=== PATIENT | male | born 1955 | race Hispanic/Latino ===

== ENCOUNTER 2022-08-19 12:58 | Inpatient (IN) | payer BC, MEDICARE, OTHER ==
[~2022-08-19] VITALS: Ht 170.2 cm; Wt 77.1 kg
[~2022-08-19 12:58] MED LIST: AMLODIPINE BESY10 MG PO; ASPIRIN325 MG PO; FISH OIL PO; LISINOPRIL10 MG PO; METOPROLOL SUC100 MG PO; PLAVIX75 MG PO; SIMVASTATIN40 MG PO
[2022-08-19] MEDS ORDERED: SODIUM CHLORIDE 0.9% 1000ML 1,000 ML IV STA (14:50)
[2022-08-19] MEDS ORDERED: KETOROLAC TROMETHAMINE 30 MG/ML VIAL IV STA (14:50)
[2022-08-19] MEDS ORDERED: ONDANSETRON HCL INJ 2MG/ML 2ML 2 MG/ML VIAL IV STA (14:50)
[2022-08-19 15:05] LABS: BASOPHILS # (AUTO) 0.1 (0.0-0.1); BASOPHILS % 0.3 % (0.0-1.0); EOSINOPHILS % 0.2 % (0.0-6.0); HEMOGLOBIN 13.7 g/dL (14.0-18.0); LYMPHOCYTES # (AUTO) 1.8 (1.0-3.2); LYMPHOCYTES % 10.9 % (18.0-39.1); MEAN CORPUSCULAR HEMOGLOBIN 30.3 pg (28-32); MEAN CORPUSCULAR HGB CONC 31.9 g/dL (31-35); MEAN CORPUSCULAR VOLUME 95.1 fL (81-99); MONOCYTES # (AUTO) 1.5 (0.2-0.8); MONOCYTES % 9.3 % (4.4-11.3); NEUTROPHILS # (AUTO) 12.9 (2.1-6.9); NEUTROPHILS % 78.8 % (38.7-80.0); PLATELET COUNT 297 x10e3/uL (140-360); RED BLOOD COUNT 4.52 x10e6/uL (4.3-5.7); RED CELL DISTRIBUTION WIDTH 13.2 % (11.7-14.4)
[2022-08-19 15:19] LABS: ALBUMIN 4.4 g/dL (3.5-5.0); ALBUMIN/GLOBULIN RATIO 1.2 (0.8-2.0); ANION GAP 20.1 mmol/L (8-16); CALCIUM 9.2 mg/dL (8.4-10.2); MAGNESIUM 2.1 MG/DL (1.3-2.1); POTASSIUM 4.1 mmol/L (3.5-5.1)
[2022-08-19 15:22] LABS: CLARITY,URINE SL CLOUDY (CLEAR); COLOR,URINE YELLOW (YELLOW); KETONES,URINE 1+ (NEGATIVE); LEUKOCYTE ESTERASE ,URINE NEGATIVE (NEGATIVE); NITRITE,URINE NEGATIVE (NEGATIVE); PROTEIN,URINE DIPSTICK NEGATIVE (NEGATIVE); URINE UROBILINOGEN 0.2 mg/dL (0.2 - 1)
[2022-08-19 15:26] LABS: CREATINE KINASE MB 1.3 ng/mL (0-5.0)
[2022-08-19 15:35] LABS: RBC,URINE 0-5 /HPF (0-5)
[2022-08-19] MEDS ORDERED: ONDANSETRON HCL INJ 2MG/ML 2ML 2 MG/ML VIAL IV PRN (16:30)
[2022-08-19] MEDS: SODIUM CHLORIDE 0.9% 1000ML 1,000 ML IV SCH (17:00)
[2022-08-19 20:00] VITALS: BP 138/63
[2022-08-19 21:00] VITALS: BP 138/63
[2022-08-20] VITALS (8 sets, daily range): BP systolic 136–161; BP diastolic 58–74
[2022-08-20] MEDS: SODIUM CHLORIDE 0.9% 1000ML 1,000 ML IV SCH ×4 (00:16→20:42)
[2022-08-20 05:54] LABS: BASOPHILS % 0.3 % (0.0-1.0); EOSINOPHILS # (AUTO) 0.1 (0.0-0.4); EOSINOPHILS % 1.1 % (0.0-6.0); HEMATOCRIT 37.1 % (38.2-49.6); HEMOGLOBIN 11.4 g/dL (14.0-18.0); LYMPHOCYTES # (AUTO) 1.9 (1.0-3.2); LYMPHOCYTES % 20.6 % (18.0-39.1); MEAN CORPUSCULAR HEMOGLOBIN 29.5 pg (28-32); MEAN CORPUSCULAR HGB CONC 30.7 g/dL (31-35); MEAN CORPUSCULAR VOLUME 96.1 fL (81-99); MONOCYTES # (AUTO) 0.9 (0.2-0.8); MONOCYTES % 10.4 % (4.4-11.3); NEUTROPHILS % 67.3 % (38.7-80.0); PLATELET COUNT 231 x10e3/uL (140-360); RED BLOOD COUNT 3.86 x10e6/uL (4.3-5.7); RED CELL DISTRIBUTION WIDTH 13.3 % (11.7-14.4)
[2022-08-20 06:23] LABS: ALBUMIN 3.4 g/dL (3.5-5.0); ALBUMIN/GLOBULIN RATIO 1.3 (0.8-2.0); ANION GAP 15.2 mmol/L (8-16); CALCIUM 8.2 mg/dL (8.4-10.2); CREATININE, SERUM 1.63 mg/dL (0.72-1.25); POTASSIUM 4.2 mmol/L (3.5-5.1)
[2022-08-20] MEDS: Morphine 4mg INJECTION 4 MG/ML INJ IV PRN ×3 (06:44→20:42)
[2022-08-20] MEDS ORDERED: ACETAMINOPHEN/CODEINE 300MG - 30MG TAB PO PRN (06:45)
[2022-08-20] MEDS: LISINOPRIL 10 MG TAB PO SCH ×2 (08:38→15:50)
[2022-08-20] MEDS: AMLODIPINE BESYLATE 10 MG TAB PO SCH (08:38)
[2022-08-20] MEDS: METOPROLOL SUCCINATE 50 MG TAB XL PO SCH (08:39)
[2022-08-20] MEDS: SIMVASTATIN 40 MG TAB PO SCH (20:42)
[2022-08-21] VITALS: BP 150/63
[2022-08-21] MEDS: Morphine 4mg INJECTION 4 MG/ML INJ IV PRN ×2 (02:19→14:26)
[2022-08-21] MEDS: SODIUM CHLORIDE 0.9% 1000ML 1,000 ML IV SCH ×4 (02:19→20:35)
[2022-08-21 05:50] LABS: BASOPHILS % 0.2 % (0.0-1.0); EOSINOPHILS # (AUTO) 0.1 (0.0-0.4); EOSINOPHILS % 1.7 % (0.0-6.0); HEMOGLOBIN 10.9 g/dL (14.0-18.0); LYMPHOCYTES # (AUTO) 1.4 (1.0-3.2); LYMPHOCYTES % 16.8 % (18.0-39.1); MEAN CORPUSCULAR HEMOGLOBIN 30.1 pg (28-32); MEAN CORPUSCULAR HGB CONC 31.1 g/dL (31-35); MEAN CORPUSCULAR VOLUME 96.7 fL (81-99); MONOCYTES % 11.7 % (4.4-11.3); NEUTROPHILS # (AUTO) 5.6 (2.1-6.9); NEUTROPHILS % 69.2 % (38.7-80.0); PLATELET COUNT 216 x10e3/uL (140-360); RED BLOOD COUNT 3.62 x10e6/uL (4.3-5.7)
[2022-08-21 06:25] LABS: ANION GAP 12.2 mmol/L (8-16); CREATININE, SERUM 1.62 mg/dL (0.72-1.25); POTASSIUM 4.2 mmol/L (3.5-5.1)
[2022-08-21 07:52] VITALS: BP 144/59
[2022-08-21 07:57] VITALS: BP 144/59
[2022-08-21] MEDS: LISINOPRIL 10 MG TAB PO SCH ×2 (08:44→16:08)
[2022-08-21] MEDS: AMLODIPINE BESYLATE 10 MG TAB PO SCH (08:44)
[2022-08-21] MEDS: METOPROLOL SUCCINATE 50 MG TAB XL PO SCH (08:45)
[2022-08-21 11:52] VITALS: BP 154/68
[2022-08-21 15:23] VITALS: BP 143/59
[2022-08-21 20:00] VITALS: BP_SYST 122; BP_SYST 143; BP_SYST 161; BP_DIAS 56; BP_DIAS 59; BP_DIAS 63
[2022-08-21] MEDS: SIMVASTATIN 40 MG TAB PO SCH (20:34)
[2022-08-21] MEDS ORDERED: BISACODYL 5 MG TAB EC PO PRN (21:30)
[2022-08-22] MEDS: SODIUM CHLORIDE 0.9% 1000ML 1,000 ML IV SCH ×3 (02:58→18:51)
[2022-08-22] MEDS: Morphine 4mg INJECTION 4 MG/ML INJ IV PRN ×3 (02:58→21:43)
[2022-08-22] MEDS ORDERED: LACTULOSE SYRUP 20 GM/30 ML UDC PO PRN (05:00)
[2022-08-22 06:01] LABS: BASOPHILS % 0.2 % (0.0-1.0); EOSINOPHILS # (AUTO) 0.1 (0.0-0.4); EOSINOPHILS % 1.5 % (0.0-6.0); HEMATOCRIT 31.8 % (38.2-49.6); HEMOGLOBIN 10.6 g/dL (14.0-18.0); LYMPHOCYTES # (AUTO) 1.3 (1.0-3.2); LYMPHOCYTES % 15.3 % (18.0-39.1); MEAN CORPUSCULAR HEMOGLOBIN 30.2 pg (28-32); MEAN CORPUSCULAR HGB CONC 33.3 g/dL (31-35); MEAN CORPUSCULAR VOLUME 90.6 fL (81-99); MONOCYTES # (AUTO) 0.8 (0.2-0.8); MONOCYTES % 9.5 % (4.4-11.3); NEUTROPHILS % 73.1 % (38.7-80.0); PLATELET COUNT 225 x10e3/uL (140-360); RED BLOOD COUNT 3.51 x10e6/uL (4.3-5.7)
[2022-08-22 06:42] LABS: ANION GAP 14.8 mmol/L (8-16); CALCIUM 8.1 mg/dL (8.4-10.2); CREATININE, SERUM 1.49 mg/dL (0.72-1.25); POTASSIUM 3.8 mmol/L (3.5-5.1)
[2022-08-22] MEDS ORDERED: IOPAMIDOL 300MG/ML 50ML INFUS..BTL IV ONE (06:48)
[2022-08-22 08:18] VITALS: BP 143/59
[2022-08-22] MEDS ORDERED: PHENAZOPYRIDINE HCL 100 MG TAB PO PRN (09:00)
[2022-08-22 09:11] VITALS: BP 159/70
[2022-08-22] MEDS: OXYBUTYNIN CHLORIDE 5 MG TAB PO SCH ×2 (09:57→17:36)
[2022-08-22] MEDS: AMLODIPINE BESYLATE 10 MG TAB PO SCH (09:58)
[2022-08-22] MEDS: LISINOPRIL 10 MG TAB PO SCH ×2 (09:58→17:37)
[2022-08-22] MEDS: METOPROLOL SUCCINATE 50 MG TAB XL PO SCH (09:59)
[2022-08-22 11:41] VITALS: BP 139/58
[2022-08-22] MEDS ORDERED: FENTANYL CITRATE/PF 100MCG/2 ML INJ ONE (13:56)
[2022-08-22 15:16] VITALS: BP 154/64
[2022-08-22 20:00] VITALS: BP_SYST 154; BP_SYST 179; BP_DIAS 64; BP_DIAS 79
[2022-08-22] MEDS: SIMVASTATIN 40 MG TAB PO SCH (20:36)
[2022-08-23] VITALS: BP 170/75
[2022-08-23] MEDS: SODIUM CHLORIDE 0.9% 1000ML 1,000 ML IV SCH ×2 (02:32→09:04)
[2022-08-23 04:00] VITALS: BP 134/69
[2022-08-23 06:09] LABS: BASOPHILS % 0.2 % (0.0-1.0); EOSINOPHILS # (AUTO) 0.1 (0.0-0.4); HEMATOCRIT 32.8 % (38.2-49.6); HEMOGLOBIN 10.3 g/dL (14.0-18.0); LYMPHOCYTES # (AUTO) 0.9 (1.0-3.2); LYMPHOCYTES % 11.4 % (18.0-39.1); MEAN CORPUSCULAR HEMOGLOBIN 30.1 pg (28-32); MEAN CORPUSCULAR HGB CONC 31.4 g/dL (31-35); MEAN CORPUSCULAR VOLUME 95.9 fL (81-99); MONOCYTES # (AUTO) 0.8 (0.2-0.8); MONOCYTES % 9.2 % (4.4-11.3); NEUTROPHILS # (AUTO) 6.4 (2.1-6.9); NEUTROPHILS % 77.7 % (38.7-80.0); PLATELET COUNT 241 x10e3/uL (140-360); RED BLOOD COUNT 3.42 x10e6/uL (4.3-5.7)
[2022-08-23 06:29] LABS: CALCIUM 7.7 mg/dL (8.4-10.2); CREATININE, SERUM 1.38 mg/dL (0.72-1.25)
[2022-08-23 08:28] VITALS: BP 173/66
[2022-08-23 08:29] VITALS: BP 173/66
[2022-08-23] MEDS: OXYBUTYNIN CHLORIDE 5 MG TAB PO SCH (09:04)
[2022-08-23] MEDS: AMLODIPINE BESYLATE 10 MG TAB PO SCH (09:05)
[2022-08-23] MEDS: LISINOPRIL 10 MG TAB PO SCH (09:05)
[2022-08-23] MEDS: METOPROLOL SUCCINATE 50 MG TAB XL PO SCH (09:05)
[2022-08-23] MEDS ORDERED: FLOMAX0.4 MG PO (11:50)
[2022-08-23] MEDS ORDERED: DITROPAN XL5 MG PO (11:51)
[2022-08-23] MEDS ORDERED: tylenol #3 PO (11:52)
[2022-08-23 12:04] VITALS: BP 164/69
[2022-08-23 12:50] VITALS: BP 151/64
== END 2022-08-23 13:10 | disposition home or self-care (01) | DRG 661 ==
LOC: ER 13:38 → ERHOLD 16:47 → MED/SURG3 20:13
PROVIDERS: ADMIT Family Medicine; ATTEND Family Medicine
PROC: BT141ZZ Fluoroscopy of Kidneys, Ureters and Bladder using Low Osmolar Contrast (ICD-10-PCS; 2022-08-22)
PROC: 0TC68ZZ Extirpation of Matter from Right Ureter, Via Natural or Artificial Opening Endoscopic (ICD-10-PCS; principal; 2022-08-22 07:17)
PROC: 0T768DZ Dilation of Right Ureter with Intraluminal Device, Via Natural or Artificial Opening Endoscopic (ICD-10-PCS; 2022-08-22 07:17)
DX: N13.6 Pyonephrosis (principal); E83.52 Hypercalcemia; E78.00 Pure hypercholesterolemia, unspecified; I25.10 Atherosclerotic heart disease of native coronary artery without angina pectoris; Z95.5 Presence of coronary angioplasty implant and graft; I73.9 Peripheral vascular disease, unspecified; Z20.822 Contact with and (suspected) exposure to COVID-19; N28.1 Cyst of kidney, acquired; D64.9 Anemia, unspecified; R31.29 Other microscopic hematuria; N40.0 Benign prostatic hyperplasia without lower urinary tract symptoms; I12.9 Hypertensive chronic kidney disease with stage 1 through stage 4 chronic kidney disease, or unspecified chronic kidney disease; N18.30 Chronic kidney disease, stage 3 unspecified; N17.9 Acute kidney failure, unspecified
CPT/HCPCS: 0223U; 36415; 74018; 74176; 74420; 76705; 80048; 80053; 81001; 82550; 82553; 83690; 83735; 83970; 84484; 84550; 85025; 87086; 88300; 99284; C1758; C1766; C1769; C2617; J0696; J1885; J2270; J2405; J3010; J7030

== ENCOUNTER → 2022-12-09 | Day surgery (SDC) | payer BC, MEDICARE, OTHER ==
[2022-12-08 15:26] LABS: BASOPHILS % 0.2 % (0.0-1.0); EOSINOPHILS # (AUTO) 0.3 (0.0-0.4); EOSINOPHILS % 2.5 % (0.0-6.0); HEMATOCRIT 40.1 % (38.2-49.6); HEMOGLOBIN 13.1 g/dL (14.0-18.0); LYMPHOCYTES # (AUTO) 2.8 (1.0-3.2); LYMPHOCYTES % 22.3 % (18.0-39.1); MEAN CORPUSCULAR HEMOGLOBIN 30.7 pg (28-32); MEAN CORPUSCULAR HGB CONC 32.7 g/dL (31-35); MEAN CORPUSCULAR VOLUME 93.9 fL (81-99); MONOCYTES # (AUTO) 0.9 (0.2-0.8); NEUTROPHILS # (AUTO) 8.5 (2.1-6.9); NEUTROPHILS % 67.7 % (38.7-80.0); PLATELET COUNT 288 x10e3/uL (140-360); RED BLOOD COUNT 4.27 x10e6/uL (4.3-5.7); RED CELL DISTRIBUTION WIDTH 12.7 % (11.7-14.4)
[2022-12-08 15:44] LABS: ANION GAP 16.1 mmol/L (8-16); CALCIUM 9.3 mg/dL (8.4-10.2); CREATININE, SERUM 0.99 mg/dL (0.72-1.25)
[2022-12-08 15:52] LABS: POTASSIUM 5.1 mmol/L (3.5-5.1)
[~2022-12-09] MED LIST changes: +CEFTRIAXONE 1 GM VIAL ONE; +DEXAMETHASONE SOD PHOS INJ 4 MG/ML SDV ONE; +DITROPAN XL5 MG PO; +EPHEDRINE SULFATE INJ 50 MG/ML VIAL ONE; +FENTANYL CITRATE/PF 100MCG/2 ML INJ ONE; +FLOMAX0.4 MG PO; +GENTAMICIN 80MG/NS 100 ML 100 ML IV ONE; +IOPAMIDOL 610MG/1ML 300 MG/ML VIAL IV ONE; +LACTATED RINGER'S 1,000 ML ONE; +LIDOCAINE HCL 2% LOCAL INJ 5 ML SDV VIAL INJ ONE; +ONDANSETRON HCL INJ 2MG/ML 2ML 2 MG/ML VIAL ONE; +POVIDONE IODINE 0.05% 0.05 % ML PO ONE; +PROPOFOL IV EMULSION 10 MG/ML 20 ML VIAL ONE; +SEVOFLURANE INHAL SOLN 250 ML PEN BTL ONE; +tylenol #3 PO
[2022-12-09 10:45] VITALS: BP 126/59
== END | disposition home or self-care (01) ==
LOC: OR 07:59
PROVIDERS: ATTEND Urology
DX: N20.1 Calculus of ureter (principal); Z46.6 Encounter for fitting and adjustment of urinary device; N13.30 Unspecified hydronephrosis; N28.89 Other specified disorders of kidney and ureter; N40.0 Benign prostatic hyperplasia without lower urinary tract symptoms; N13.8 Other obstructive and reflux uropathy; N32.89 Other specified disorders of bladder; Z01.810 Encounter for preprocedural cardiovascular examination; Z01.812 Encounter for preprocedural laboratory examination; Z01.818 Encounter for other preprocedural examination; Z79.02 Long term (current) use of antithrombotics/antiplatelets; Z79.82 Long term (current) use of aspirin; Z79.899 Other long term (current) drug therapy
CPT/HCPCS: 36415; 52351; 71046; 74018; 74420; 80048; 84550; 85025; 93005; C1769; J0696; J1100; J1580; J2001; J2405; J2704; J3010; J7121; Q9967

== ENCOUNTER 2023-02-25 08:29 | Inpatient (IN) | payer BC, MEDICARE ==
[~2023-02-25] VITALS: Ht 170.2 cm; Wt 78.5 kg
[~2023-02-25 08:29] MED LIST changes: -CEFTRIAXONE 1 GM VIAL ONE; -DEXAMETHASONE SOD PHOS INJ 4 MG/ML SDV ONE; -EPHEDRINE SULFATE INJ 50 MG/ML VIAL ONE; -FENTANYL CITRATE/PF 100MCG/2 ML INJ ONE; -GENTAMICIN 80MG/NS 100 ML 100 ML IV ONE; -IOPAMIDOL 610MG/1ML 300 MG/ML VIAL IV ONE; -LACTATED RINGER'S 1,000 ML ONE; -LIDOCAINE HCL 2% LOCAL INJ 5 ML SDV VIAL INJ ONE; -ONDANSETRON HCL INJ 2MG/ML 2ML 2 MG/ML VIAL ONE; -POVIDONE IODINE 0.05% 0.05 % ML PO ONE; -PROPOFOL IV EMULSION 10 MG/ML 20 ML VIAL ONE; -SEVOFLURANE INHAL SOLN 250 ML PEN BTL ONE
[2023-02-25 09:22] LABS: BASOPHILS # (AUTO) 0.1 (0.0-0.1); BASOPHILS % 0.4 % (0.0-1.0); EOSINOPHILS # (AUTO) 1.3 (0.0-0.4); HEMOGLOBIN 13.5 g/dL (14.0-18.0); LYMPHOCYTES # (AUTO) 2.2 (1.0-3.2); LYMPHOCYTES % 12.9 % (18.0-39.1); MEAN CORPUSCULAR HEMOGLOBIN 31.5 pg (28-32); MEAN CORPUSCULAR HGB CONC 35.5 g/dL (31-35); MEAN CORPUSCULAR VOLUME 88.6 fL (81-99); MONOCYTES # (AUTO) 1.8 (0.2-0.8); MONOCYTES % 10.7 % (4.4-11.3); NEUTROPHILS # (AUTO) 11.2 (2.1-6.9); NEUTROPHILS % 67.6 % (38.7-80.0); PLATELET COUNT 362 x10e3/uL (140-360); RED BLOOD COUNT 4.29 x10e6/uL (4.3-5.7); RED CELL DISTRIBUTION WIDTH 12.1 % (11.7-14.4)
[2023-02-25 09:34] LABS: INR 0.95; PROTHROMBIN TIME 13.2 seconds (11.9-14.5)
[2023-02-25 09:57] LABS: ALANINE AMINOTRANSFERASE 16 IU/L (0-55); ALBUMIN/GLOBULIN RATIO 1.1 (0.8-2.0); ALKALINE PHOSPHATASE 106 IU/L (40-150); ANION GAP 17.9 mmol/L (8-16); BLOOD UREA NITROGEN 16 mg/dL (7-26); BUN/CREATININE RATIO 17 (6-25); CALCIUM 9.2 mg/dL (8.4-10.2); CARBON DIOXIDE 17 mmol/L (22-29); CHLORIDE 100 mmol/L (98-107); CREATINE KINASE 54 IU/L (30-200); CREATININE, SERUM 0.94 mg/dL (0.72-1.25); GLUCOSE 100 mg/dL (74-118); POTASSIUM 3.9 mmol/L (3.5-5.1); SODIUM 131 mmol/L (136-145)
[2023-02-25 11:04] LABS: COLOR,URINE YELLOW (YELLOW)
[2023-02-25 11:05] LABS: CLARITY,URINE CLEAR (CLEAR); KETONES,URINE 1+ (NEGATIVE); LEUKOCYTE ESTERASE ,URINE NEGATIVE (NEGATIVE); NITRITE,URINE NEGATIVE (NEGATIVE); PROTEIN,URINE DIPSTICK NEGATIVE (NEGATIVE); URINE UROBILINOGEN 0.2 mg/dL (0.2 - 1)
[2023-02-25 11:24] LABS: BACTERIA,URINE FEW /HPF; EPITHELIAL CELLS,URINE FEW /LPF; RBC,URINE 0-5 /HPF (0-5); WBC,URINE (MAN) 0-5 /HPF (0-5)
[2023-02-25 11:25] LABS: URIC ACID CRYSTALS,URINE FEW (FEW)
[2023-02-25] MEDS ORDERED: SODIUM CHLORIDE 0.9% 1000ML 1,000 ML IV ONE (11:45)
[2023-02-25] MEDS ORDERED: NITROGLYCERIN 0.4 MG SUBL SL PRN (11:45)
[2023-02-25] MEDS ORDERED: ONDANSETRON HCL INJ 2MG/ML 2ML 2 MG/ML VIAL IV PRN (11:45)
[2023-02-25] MEDS ORDERED: IOPAMIDOL 370 MG/ML 100 ML INFUS..BTL INJ ONE (16:44)
[2023-02-25] MEDS: TAMSULOSIN HCL 0.4 MG CAP PO SCH ×2 (17:00→19:00)
[2023-02-25 18:20] VITALS: BP 153/71; PULSE 72; RESP 18; TEMP 98.2; O2SAT 100
[2023-02-25 18:50] VITALS: BP 153/71; PULSE 72; RESP 18; TEMP 98.2; O2SAT 100
[2023-02-25 19:25] VITALS: BP 141/67; PULSE 67; RESP 18; TEMP 100.1; O2SAT 100
[2023-02-25] MEDS: ACETAMINOPHEN 325 MG TAB PO PRN (20:43)
[2023-02-25 21:30] VITALS: BP 141/67; PULSE 67; RESP 18; TEMP 100.1; O2SAT 100
[2023-02-26] VITALS (8 sets, daily range): BP systolic 122–143; BP diastolic 55–62; PULSE 61–69; RESP 17–20; TEMP 98–100.2; O2SAT 63–100
[2023-02-26 04:56] LABS: BASOPHILS # (AUTO) 0.1 (0.0-0.1); BASOPHILS % 0.5 % (0.0-1.0); EOSINOPHILS # (AUTO) 1.1 (0.0-0.4); EOSINOPHILS % 9.1 % (0.0-6.0); HEMATOCRIT 35.5 % (38.2-49.6); HEMOGLOBIN 12.1 g/dL (14.0-18.0); LYMPHOCYTES % 8.6 % (18.0-39.1); MEAN CORPUSCULAR HEMOGLOBIN 31.3 pg (28-32); MEAN CORPUSCULAR HGB CONC 34.1 g/dL (31-35); MONOCYTES # (AUTO) 1.4 (0.2-0.8); MONOCYTES % 11.9 % (4.4-11.3); NEUTROPHILS % 69.3 % (38.7-80.0); PLATELET COUNT 310 x10e3/uL (140-360); RED BLOOD COUNT 3.86 x10e6/uL (4.3-5.7)
[2023-02-26 05:18] LABS: ALBUMIN 3.4 g/dL (3.5-5.0); ANION GAP 14.1 mmol/L (8-16); CALCIUM 8.8 mg/dL (8.4-10.2); CHOL/HDL RATIO 4.6 (3.9-4.7); CREATININE, SERUM 0.93 mg/dL (0.72-1.25); POTASSIUM 4.1 mmol/L (3.5-5.1)
[2023-02-26] MEDS: CLOPIDOGREL BISULFATE 75 MG TAB PO SCH (08:40)
[2023-02-26] MEDS: ASPIRIN 325 MG TAB PO SCH (08:40)
[2023-02-26] MEDS: AMLODIPINE BESYLATE 10 MG TAB PO SCH (08:40)
[2023-02-26] MEDS: LISINOPRIL 10 MG TAB PO SCH (08:41)
[2023-02-26] MEDS: METOPROLOL SUCCINATE 50 MG TAB XL PO SCH (08:41)
[2023-02-26] MEDS ORDERED: NON-FORMULARY MEDICATION (Metoprolol Succinate 100 MG) PO SCH (09:00)
[2023-02-26] MEDS ORDERED: ASPIRIN 81 MG ENTERIC COATED PO SCH (09:00)
[2023-02-26] MEDS ORDERED: ONDANSETRON HCL 4 MG ORAL DISINTEGRATING TAB PO PRN (09:00)
[2023-02-26] MEDS: SODIUM CHLORIDE 0.9% 1000ML 1,000 ML IV SCH (18:08)
[2023-02-26] MEDS: AZITHROMYCIN 250 MG TAB PO SCH (18:08)
[2023-02-26] MEDS: TAMSULOSIN HCL 0.4 MG CAP PO SCH (18:08)
[2023-02-26] MEDS: SIMVASTATIN 40 MG TAB PO SCH (20:21)
[2023-02-26] MEDS: ACETAMINOPHEN 325 MG TAB PO PRN (23:43)
[2023-02-27] VITALS (8 sets, daily range): BP systolic 113–144; BP diastolic 60–70; PULSE 65–74; RESP 16–20; TEMP 98–101.1; O2SAT 98–100
[2023-02-27] MEDS: ASPIRIN 325 MG TAB PO SCH (08:36)
[2023-02-27] MEDS: AZITHROMYCIN 250 MG TAB PO SCH (08:36)
[2023-02-27] MEDS: AMLODIPINE BESYLATE 10 MG TAB PO SCH (08:37)
[2023-02-27] MEDS: CLOPIDOGREL BISULFATE 75 MG TAB PO SCH (08:37)
[2023-02-27] MEDS: LISINOPRIL 10 MG TAB PO SCH (08:37)
[2023-02-27] MEDS: METOPROLOL SUCCINATE 50 MG TAB XL PO SCH (08:38)
[2023-02-27] MEDS: SODIUM CHLORIDE 0.9% 1000ML 1,000 ML IV SCH (08:38)
[2023-02-27] MEDS: ENOXAPARIN SOD INJ 40 MG/0.4 ML SYR SC SCH (17:11)
[2023-02-27] MEDS: TAMSULOSIN HCL 0.4 MG CAP PO SCH (17:11)
[2023-02-27] MEDS: SIMVASTATIN 40 MG TAB PO SCH (20:05)
[2023-02-27] MEDS: ACETAMINOPHEN 325 MG TAB PO PRN (20:45)
[2023-02-28] VITALS (8 sets, daily range): BP systolic 112–149; BP diastolic 59–66; PULSE 63–85; RESP 16–20; TEMP 98.2–101.6; O2SAT 99–100
[2023-02-28] MEDS: ACETAMINOPHEN 325 MG TAB PO PRN (05:15)
[2023-02-28 06:41] LABS: BASOPHILS # (AUTO) 0.1 (0.0-0.1); BASOPHILS % 0.4 % (0.0-1.0); EOSINOPHILS # (AUTO) 1.2 (0.0-0.4); EOSINOPHILS % 8.7 % (0.0-6.0); HEMATOCRIT 34.1 % (38.2-49.6); LYMPHOCYTES # (AUTO) 1.4 (1.0-3.2); LYMPHOCYTES % 9.8 % (18.0-39.1); MEAN CORPUSCULAR HEMOGLOBIN 31.1 pg (28-32); MEAN CORPUSCULAR HGB CONC 35.2 g/dL (31-35); MEAN CORPUSCULAR VOLUME 88.3 fL (81-99); MONOCYTES # (AUTO) 1.3 (0.2-0.8); MONOCYTES % 9.5 % (4.4-11.3); NEUTROPHILS # (AUTO) 9.8 (2.1-6.9); NEUTROPHILS % 71.2 % (38.7-80.0); PLATELET COUNT 336 x10e3/uL (140-360); RED BLOOD COUNT 3.86 x10e6/uL (4.3-5.7); RED CELL DISTRIBUTION WIDTH 11.9 % (11.7-14.4)
[2023-02-28 07:03] LABS: ALBUMIN 3.4 g/dL (3.5-5.0); ANION GAP 14.8 mmol/L (8-16); CALCIUM 8.7 mg/dL (8.4-10.2); CREATININE, SERUM 0.84 mg/dL (0.72-1.25); POTASSIUM 3.8 mmol/L (3.5-5.1)
[2023-02-28 07:43] LABS: FREE THYROXINE INDEX 2.6194 (1.4-3.8); THYROID STIMULATING HORMONE 0.785 uIU/mL (0.350-4.940)
[2023-02-28] MEDS: ASPIRIN 325 MG TAB PO SCH (08:32)
[2023-02-28] MEDS: AZITHROMYCIN 250 MG TAB PO SCH (08:33)
[2023-02-28] MEDS: CLOPIDOGREL BISULFATE 75 MG TAB PO SCH (08:33)
[2023-02-28] MEDS: METOPROLOL SUCCINATE 50 MG TAB XL PO SCH (08:34)
[2023-02-28] MEDS: AMLODIPINE BESYLATE 10 MG TAB PO SCH (08:34)
[2023-02-28] MEDS: LISINOPRIL 10 MG TAB PO SCH (08:34)
[2023-02-28] MEDS: ENOXAPARIN SOD INJ 40 MG/0.4 ML SYR SC SCH (16:48)
[2023-02-28] MEDS: SIMVASTATIN 40 MG TAB PO SCH (20:24)
[2023-03-01] VITALS (7 sets, daily range): BP systolic 127–143; BP diastolic 50–68; PULSE 60–73; RESP 18–20; TEMP 98.2–102.6; O2SAT 95–100
[2023-03-01] MEDS: ACETAMINOPHEN 325 MG TAB PO PRN ×2 (00:15→21:00)
[2023-03-01] MEDS: CLOPIDOGREL BISULFATE 75 MG TAB PO SCH (09:34)
[2023-03-01] MEDS: AZITHROMYCIN 250 MG TAB PO SCH (09:34)
[2023-03-01] MEDS: ASPIRIN 325 MG TAB PO SCH (09:34)
[2023-03-01] MEDS: LISINOPRIL 10 MG TAB PO SCH (09:34)
[2023-03-01 09:35] LABS: BASOPHILS # (AUTO) 0.1 (0.0-0.1); BASOPHILS % 0.5 % (0.0-1.0); EOSINOPHILS # (AUTO) 1.2 (0.0-0.4); EOSINOPHILS % 9.3 % (0.0-6.0); HEMATOCRIT 34.3 % (38.2-49.6); HEMOGLOBIN 11.8 g/dL (14.0-18.0); LYMPHOCYTES # (AUTO) 0.9 (1.0-3.2); LYMPHOCYTES % 7.3 % (18.0-39.1); MEAN CORPUSCULAR HEMOGLOBIN 31.1 pg (28-32); MEAN CORPUSCULAR HGB CONC 34.4 g/dL (31-35); MEAN CORPUSCULAR VOLUME 90.5 fL (81-99); MONOCYTES # (AUTO) 1.1 (0.2-0.8); MONOCYTES % 8.7 % (4.4-11.3); NEUTROPHILS # (AUTO) 9.2 (2.1-6.9); NEUTROPHILS % 73.6 % (38.7-80.0); PLATELET COUNT 340 x10e3/uL (140-360); RED BLOOD COUNT 3.79 x10e6/uL (4.3-5.7); RED CELL DISTRIBUTION WIDTH 11.7 % (11.7-14.4)
[2023-03-01] MEDS: METOPROLOL SUCCINATE 50 MG TAB XL PO SCH (09:35)
[2023-03-01] MEDS: AMLODIPINE BESYLATE 10 MG TAB PO SCH (09:35)
[2023-03-01 10:02] LABS: ANION GAP 12.6 mmol/L (8-16); CALCIUM 8.6 mg/dL (8.4-10.2); CREATININE, SERUM 0.9 mg/dL (0.72-1.25); POTASSIUM 3.6 mmol/L (3.5-5.1)
[2023-03-01] MEDS: SODIUM CHLORIDE 1 GM TAB PO SCH ×2 (11:35→20:53)
[2023-03-01] MEDS ORDERED: IOPAMIDOL 370 MG/ML 100 ML INFUS..BTL INJ ONE (12:46)
[2023-03-01] MEDS ORDERED: SODIUM CHLORIDE 0.9% 250ML 250 ML ONE (16:10)
[2023-03-01] MEDS: ENOXAPARIN SOD INJ 40 MG/0.4 ML SYR SC SCH (16:23)
[2023-03-01 18:45] LABS: HIV 1&2 AB SCREEN NON-REACTIVE (NONREACTIVE)
[2023-03-01] MEDS: SIMVASTATIN 40 MG TAB PO SCH (20:53)
[2023-03-02 00:49] VITALS: BP 114/69; PULSE 71; RESP 18; TEMP 98; O2SAT 100
[2023-03-02 04:00] VITALS: BP 114/69; PULSE 71; RESP 18; TEMP 98; O2SAT 100
[2023-03-02 05:52] LABS: BASOPHILS # (AUTO) 0.1 (0.0-0.1); BASOPHILS % 0.7 % (0.0-1.0); EOSINOPHILS # (AUTO) 1.3 (0.0-0.4); EOSINOPHILS % 9.7 % (0.0-6.0); HEMATOCRIT 33.3 % (38.2-49.6); HEMOGLOBIN 11.5 g/dL (14.0-18.0); LYMPHOCYTES # (AUTO) 1.1 (1.0-3.2); LYMPHOCYTES % 8.7 % (18.0-39.1); MEAN CORPUSCULAR HEMOGLOBIN 31.2 pg (28-32); MEAN CORPUSCULAR HGB CONC 34.5 g/dL (31-35); MEAN CORPUSCULAR VOLUME 90.2 fL (81-99); MONOCYTES # (AUTO) 1.3 (0.2-0.8); MONOCYTES % 9.7 % (4.4-11.3); NEUTROPHILS # (AUTO) 9.3 (2.1-6.9); NEUTROPHILS % 70.7 % (38.7-80.0); PLATELET COUNT 351 x10e3/uL (140-360); RED BLOOD COUNT 3.69 x10e6/uL (4.3-5.7); RED CELL DISTRIBUTION WIDTH 11.8 % (11.7-14.4)
[2023-03-02 06:17] LABS: ANION GAP 14.7 mmol/L (8-16); CALCIUM 8.5 mg/dL (8.4-10.2); CREATININE, SERUM 0.85 mg/dL (0.72-1.25); POTASSIUM 3.7 mmol/L (3.5-5.1)
[2023-03-02 08:00] VITALS: BP 124/62; PULSE 76; RESP 19; TEMP 100.1; O2SAT 100
[2023-03-02 08:13] VITALS: BP 124/62; PULSE 76; RESP 19; TEMP 100.1; O2SAT 100
[2023-03-02] MEDS: ASPIRIN 325 MG TAB PO SCH (09:45)
[2023-03-02] MEDS: AMLODIPINE BESYLATE 10 MG TAB PO SCH (09:45)
[2023-03-02] MEDS: CLOPIDOGREL BISULFATE 75 MG TAB PO SCH (09:45)
[2023-03-02] MEDS: LISINOPRIL 10 MG TAB PO SCH (09:46)
[2023-03-02] MEDS: SODIUM CHLORIDE 1 GM TAB PO SCH ×3 (09:46→22:53)
[2023-03-02] MEDS: METOPROLOL SUCCINATE 50 MG TAB XL PO SCH (09:47)
[2023-03-02] MEDS: ACETAMINOPHEN 325 MG TAB PO PRN (09:56)
[2023-03-02 11:39] VITALS: BP 121/61; PULSE 71; RESP 19; TEMP 99.5; O2SAT 100
[2023-03-02 16:00] VITALS: BP 124/61; PULSE 60; RESP 20; TEMP 98; O2SAT 100
[2023-03-02] MEDS: ENOXAPARIN SOD INJ 40 MG/0.4 ML SYR SC SCH (16:38)
[2023-03-02] MEDS: SIMVASTATIN 40 MG TAB PO SCH (22:53)
[2023-03-03 08:25] VITALS: BP 147/66; PULSE 65; RESP 17; TEMP 99.5; O2SAT 99
[2023-03-03] MEDS: AMLODIPINE BESYLATE 10 MG TAB PO SCH (08:26)
[2023-03-03] MEDS: SODIUM CHLORIDE 1 GM TAB PO SCH ×3 (08:27→21:40)
[2023-03-03] MEDS: LISINOPRIL 10 MG TAB PO SCH (08:27)
[2023-03-03] MEDS: ASPIRIN 325 MG TAB PO SCH (08:27)
[2023-03-03] MEDS: CLOPIDOGREL BISULFATE 75 MG TAB PO SCH (08:27)
[2023-03-03] MEDS: Morphine 2mg Syringe 2 MG/ML SYR IV PRN ×2 (08:28→21:45)
[2023-03-03] MEDS: METOPROLOL SUCCINATE 50 MG TAB XL PO SCH (08:28)
[2023-03-03 08:30] VITALS: BP 147/66; PULSE 65; RESP 17; TEMP 99.5; O2SAT 99
[2023-03-03 16:54] LABS: FREE T4 (FREE THYROXINE) 1.16 ng/dL (0.8-1.8); THYROID STIMULATING HORMONE 0.718 uIU/mL (0.350-4.940)
[2023-03-03] MEDS: ENOXAPARIN SOD INJ 40 MG/0.4 ML SYR SC SCH (17:21)
[2023-03-03 20:00] VITALS: BP 138/66; PULSE 69; RESP 18; TEMP 100.6; O2SAT 98
[2023-03-03] MEDS: SIMVASTATIN 40 MG TAB PO SCH (21:40)
[2023-03-03 22:58] VITALS: BP 138/66; PULSE 69; RESP 18; TEMP 100.6; O2SAT 98
[2023-03-04] VITALS (7 sets, daily range): BP systolic 118–146; BP diastolic 62–82; PULSE 60–70; RESP 16–20; TEMP 99.2–100.7; O2SAT 98–99
[2023-03-04 05:57] LABS: BASOPHILS # (AUTO) 0.1 (0.0-0.1); BASOPHILS % 0.7 % (0.0-1.0); EOSINOPHILS # (AUTO) 1.5 (0.0-0.4); EOSINOPHILS % 12.6 % (0.0-6.0); HEMATOCRIT 31.7 % (38.2-49.6); HEMOGLOBIN 10.9 g/dL (14.0-18.0); LYMPHOCYTES # (AUTO) 1.1 (1.0-3.2); LYMPHOCYTES % 9.3 % (18.0-39.1); MEAN CORPUSCULAR HEMOGLOBIN 30.8 pg (28-32); MEAN CORPUSCULAR HGB CONC 34.4 g/dL (31-35); MEAN CORPUSCULAR VOLUME 89.5 fL (81-99); MONOCYTES # (AUTO) 1.3 (0.2-0.8); MONOCYTES % 10.8 % (4.4-11.3); NEUTROPHILS # (AUTO) 8.1 (2.1-6.9); NEUTROPHILS % 66.1 % (38.7-80.0); PLATELET COUNT 363 x10e3/uL (140-360); RED BLOOD COUNT 3.54 x10e6/uL (4.3-5.7); RED CELL DISTRIBUTION WIDTH 11.6 % (11.7-14.4)
[2023-03-04 06:38] LABS: ANION GAP 13.8 mmol/L (8-16); CALCIUM 8.2 mg/dL (8.4-10.2); CREATININE, SERUM 0.78 mg/dL (0.72-1.25); POTASSIUM 3.8 mmol/L (3.5-5.1)
[2023-03-04] MEDS: Morphine 2mg Syringe 2 MG/ML SYR IV PRN ×2 (07:34→22:16)
[2023-03-04] MEDS: LISINOPRIL 10 MG TAB PO SCH (08:05)
[2023-03-04] MEDS: SODIUM CHLORIDE 1 GM TAB PO SCH ×3 (08:06→20:08)
[2023-03-04] MEDS: ASPIRIN 325 MG TAB PO SCH (08:06)
[2023-03-04] MEDS: METOPROLOL SUCCINATE 50 MG TAB XL PO SCH (08:06)
[2023-03-04] MEDS: CLOPIDOGREL BISULFATE 75 MG TAB PO SCH (08:06)
[2023-03-04] MEDS: AMLODIPINE BESYLATE 10 MG TAB PO SCH (08:06)
[2023-03-04] MEDS: ENOXAPARIN SOD INJ 40 MG/0.4 ML SYR SC SCH (17:18)
[2023-03-04] MEDS: SIMVASTATIN 40 MG TAB PO SCH (20:08)
[2023-03-05] VITALS (9 sets, daily range): BP systolic 117–131; BP diastolic 59–69; PULSE 58–65; RESP 18–20; TEMP 99.3–100.6; O2SAT 95–100
[2023-03-05] MEDS: Morphine 2mg Syringe 2 MG/ML SYR IV PRN ×3 (06:06→21:40)
[2023-03-05] MEDS ORDERED: SODIUM CHLORIDE 0.9% 250ML 250 ML ONE (07:51)
[2023-03-05] MEDS: CLOPIDOGREL BISULFATE 75 MG TAB PO SCH (08:58)
[2023-03-05] MEDS: ASPIRIN 325 MG TAB PO SCH (08:58)
[2023-03-05] MEDS: SODIUM CHLORIDE 1 GM TAB PO SCH ×3 (08:58→21:07)
[2023-03-05] MEDS: AMLODIPINE BESYLATE 10 MG TAB PO SCH (08:59)
[2023-03-05] MEDS: LISINOPRIL 10 MG TAB PO SCH (08:59)
[2023-03-05] MEDS: METOPROLOL SUCCINATE 50 MG TAB XL PO SCH (08:59)
[2023-03-05] MEDS: ENOXAPARIN SOD INJ 40 MG/0.4 ML SYR SC SCH (16:19)
[2023-03-05] MEDS: SIMVASTATIN 40 MG TAB PO SCH (21:07)
[2023-03-06] VITALS (8 sets, daily range): BP systolic 117–145; BP diastolic 61–69; PULSE 59–76; RESP 16–20; TEMP 98.4–100.3; O2SAT 95–100
[2023-03-06] MEDS: ASPIRIN 325 MG TAB PO SCH (10:04)
[2023-03-06] MEDS: CLOPIDOGREL BISULFATE 75 MG TAB PO SCH (10:05)
[2023-03-06] MEDS: AMLODIPINE BESYLATE 10 MG TAB PO SCH (10:05)
[2023-03-06] MEDS: METOPROLOL SUCCINATE 50 MG TAB XL PO SCH (10:06)
[2023-03-06] MEDS: SODIUM CHLORIDE 1 GM TAB PO SCH ×3 (10:06→20:25)
[2023-03-06] MEDS: LISINOPRIL 10 MG TAB PO SCH (10:06)
[2023-03-06] MEDS: Morphine 2mg Syringe 2 MG/ML SYR IV PRN (16:33)
[2023-03-06] MEDS: ENOXAPARIN SOD INJ 40 MG/0.4 ML SYR SC SCH (16:33)
[2023-03-06] MEDS: ACETAMINOPHEN 325 MG TAB PO PRN (20:25)
[2023-03-06] MEDS: SIMVASTATIN 40 MG TAB PO SCH (20:25)
[2023-03-07] VITALS (8 sets, daily range): BP systolic 115–137; BP diastolic 58–72; PULSE 50–70; RESP 17–21; TEMP 97.7–101.8; O2SAT 97–100
[2023-03-07] MEDS: METOPROLOL SUCCINATE 50 MG TAB XL PO SCH ×2 (06:05→10:08)
[2023-03-07] MEDS: Morphine 2mg Syringe 2 MG/ML SYR IV PRN ×2 (06:12→21:07)
[2023-03-07] MEDS: ASPIRIN 325 MG TAB PO SCH (09:00)
[2023-03-07] MEDS: CLOPIDOGREL BISULFATE 75 MG TAB PO SCH (09:00)
[2023-03-07] MEDS: SODIUM CHLORIDE 1 GM TAB PO SCH ×3 (10:07→21:07)
[2023-03-07] MEDS: AMLODIPINE BESYLATE 10 MG TAB PO SCH (10:08)
[2023-03-07] MEDS: LISINOPRIL 10 MG TAB PO SCH (10:09)
[2023-03-07] MEDS: ACETAMINOPHEN 325 MG TAB PO PRN (12:24)
[2023-03-07] MEDS: SIMVASTATIN 40 MG TAB PO SCH (21:07)
[2023-03-08] VITALS (7 sets, daily range): BP systolic 111–126; BP diastolic 62–73; PULSE 62–70; RESP 18–19; TEMP 98–99.5; O2SAT 96–100
[2023-03-08 06:24] LABS: BASOPHILS # (AUTO) 0.1 (0.0-0.1); BASOPHILS % 0.7 % (0.0-1.0); EOSINOPHILS # (AUTO) 1.7 (0.0-0.4); EOSINOPHILS % 14.6 % (0.0-6.0); HEMOGLOBIN 11.4 g/dL (14.0-18.0); LYMPHOCYTES # (AUTO) 1.3 (1.0-3.2); LYMPHOCYTES % 11.1 % (18.0-39.1); MEAN CORPUSCULAR HEMOGLOBIN 30.8 pg (28-32); MEAN CORPUSCULAR HGB CONC 34.5 g/dL (31-35); MEAN CORPUSCULAR VOLUME 89.2 fL (81-99); MONOCYTES # (AUTO) 1.2 (0.2-0.8); MONOCYTES % 10.5 % (4.4-11.3); NEUTROPHILS # (AUTO) 7.4 (2.1-6.9); NEUTROPHILS % 62.5 % (38.7-80.0); PLATELET COUNT 447 x10e3/uL (140-360); RED CELL DISTRIBUTION WIDTH 11.6 % (11.7-14.4)
[2023-03-08 06:42] LABS: INR 1.07; PROTHROMBIN TIME 14.4 seconds (11.9-14.5)
[2023-03-08 06:43] LABS: PARTIAL THROMBOPLASTIN TIME 26.9 seconds (23.8-35.5)
[2023-03-08] MEDS: Morphine 2mg Syringe 2 MG/ML SYR IV PRN ×2 (06:43→17:54)
[2023-03-08 07:31] LABS: CALCIUM 8.4 mg/dL (8.4-10.2); CREATININE, SERUM 0.78 mg/dL (0.72-1.25)
[2023-03-08] MEDS: CLOPIDOGREL BISULFATE 75 MG TAB PO SCH (09:00)
[2023-03-08] MEDS: ASPIRIN 325 MG TAB PO SCH (09:18)
[2023-03-08] MEDS: SODIUM CHLORIDE 1 GM TAB PO SCH ×3 (09:18→20:00)
[2023-03-08] MEDS: LISINOPRIL 10 MG TAB PO SCH (09:19)
[2023-03-08] MEDS: METOPROLOL SUCCINATE 50 MG TAB XL PO SCH (09:19)
[2023-03-08] MEDS: AMLODIPINE BESYLATE 10 MG TAB PO SCH (09:20)
[2023-03-08] MEDS: SIMVASTATIN 40 MG TAB PO SCH (20:00)
[2023-03-09 00:29] VITALS: BP 121/68; PULSE 69; RESP 17; TEMP 98.6; O2SAT 99
[2023-03-09 05:19] VITALS: BP 119/63; PULSE 62; RESP 18; TEMP 99.7; O2SAT 99
[2023-03-09] MEDS: Morphine 2mg Syringe 2 MG/ML SYR IV PRN ×2 (06:53→19:13)
[2023-03-09 08:13] VITALS: BP 113/65; PULSE 65; RESP 18; TEMP 99; O2SAT 100
[2023-03-09] MEDS: SODIUM CHLORIDE 1 GM TAB PO SCH ×2 (08:38→17:08)
[2023-03-09] MEDS: METOPROLOL SUCCINATE 50 MG TAB XL PO SCH (08:39)
[2023-03-09] MEDS: AMLODIPINE BESYLATE 10 MG TAB PO SCH (08:39)
[2023-03-09] MEDS: LISINOPRIL 10 MG TAB PO SCH (08:39)
[2023-03-09] MEDS: ASPIRIN 325 MG TAB PO SCH (09:00)
[2023-03-09] MEDS: CLOPIDOGREL BISULFATE 75 MG TAB PO SCH (09:00)
[2023-03-09 11:43] VITALS: BP 120/57; PULSE 62; RESP 19; TEMP 98.8; O2SAT 96
[2023-03-09 15:10] VITALS: PULSE 62; RESP 16; O2SAT 96
[2023-03-09 15:42] VITALS: BP 119/60; PULSE 62; RESP 19; TEMP 99; O2SAT 100
== END 2023-03-09 19:08 | disposition home or self-care (01) | DRG 864 ==
LOC: ER 08:46 → ERHOLD 11:50 → MED/SURG3 18:03 → OBSVTOIN 03-01 08:12
PROVIDERS: ADMIT Family Medicine; ATTEND Family Medicine
DX: R50.9 Fever, unspecified (principal); E87.1 Hypo-osmolality and hyponatremia; E87.20 Acidosis, unspecified; E27.9 Disorder of adrenal gland, unspecified; D72.829 Elevated white blood cell count, unspecified; I10 Essential (primary) hypertension; E83.51 Hypocalcemia; E78.5 Hyperlipidemia, unspecified; I25.10 Atherosclerotic heart disease of native coronary artery without angina pectoris; R53.83 Other fatigue; Z20.822 Contact with and (suspected) exposure to COVID-19; Z79.02 Long term (current) use of antithrombotics/antiplatelets; I25.2 Old myocardial infarction; Z87.891 Personal history of nicotine dependence; Z87.442 Personal history of urinary calculi
CPT/HCPCS: 0223U; 36415; 71045; 71260; 74177; 74470; 80048; 80053; 80061; 81001; 82384; 82530; 82533; 82550; 83001; 83615; 83735; 83835; 83880; 84146; 84152; 84402; 84436; 84439; 84443; 84479; 84484; 84585; 85025; 85610; 85730; 86039; 86140; 86200; 86376; 86431; 87040; 87390; 93005; 94799; 99284; G0378; G0433; G0435; J0696; J1650; J2270; J7030; J7050; Q0162; Q9967